=== PATIENT | female | born 1945 | race Caucasian/White ===

== ENCOUNTER 2018-05-14 06:03 | Day surgery (SDC) | payer MEDICARE, OTHER ==
[~2018-05-14 06:03] MED LIST: Lactated Ringers 1,000 ML IV SCH
--- NOTE | 2018-05-14 08:55 | OP ---
SURGERY DATE/TIME: 05/14/2018 0759 PREOPERATIVE DIAGNOSIS: Rectal bleeding. POSTOPERATIVE DIAGNOSES: 1) Hemorrhoids. 2) Small sigmoid colon polyp. PROCEDURE: Colonoscopy with polypectomy. SURGEON: Dr. Moura. ANESTHESIA: MAC. Medications given by anesthesia department. HISTORY: The patient is a 73 year-old white female presenting now for colonoscopic evaluation. She reports she had previous colonoscopy in 2003 which was normal. She has been having bleeding recently but no bleeding with the prep. She thought it was likely coming from hemorrhoids. She was felt the need to have endoscopic evaluation. The patient was appraised of the risks of the procedure including the risk of perforation, phlebitis, untoward reaction to medication, bleeding and missed lesions. The patient verbalized her understanding and desired to have the procedure performed. DESCRIPTION OF PROCEDURE: The patient was given the medications by the anesthesia department. She had continuous pulse oximetry, ECG monitoring, intermittent blood pressure monitoring and tidal CO2 monitoring during the examination. She was placed in the left lateral decubitus position. A digital rectal examination was performed and did reveal the external hemorrhoids with stigmata of recent bleeding. There was no masses and normal anal sphincter tone. The flexible Olympus pediatric colonoscope was used to intubate the rectum. A view of the colon was developed sequentially to the cecum. Upon insertion and withdrawal was noted a polyp approximately 1 cm in size in the sigmoid colon and this was removed using hot polypectomy snare for removal and the polyp was retrieved for pathologic evaluation. Upon insertion and withdrawal, including a retroflex view in the rectum, no other mucosal lesions being encountered. The scope was removed from the patient who tolerated the procedure well and was sent back to OP recovery in good condition. The prep was noted to be fair to good.
[2018-05-14 09:42] VITALS: O2SAT 100
[2018-05-14 09:43] VITALS: BP 127/71; PULSE 59
[2018-05-14] MEDS ORDERED: DIPRIVAN 200 MG/20 ML IV ONE (14:53)
== END 2018-05-14 09:45 | disposition home or self-care (01) ==
LOC: SDC 06:03
PROVIDERS: ATTEND Family Medicine
DX: K64.9 Unspecified hemorrhoids (principal); K63.5 Polyp of colon
CPT/HCPCS: 88305; 94250; 99100; J2704

== ENCOUNTER 2022-06-10 06:09 | Day surgery (SDC) | payer MEDICARE ==
[2022-06-10] MEDS ORDERED: Lactated Ringers 1,000 ML IV SCH (07:00)
[2022-06-10] MEDS ORDERED: DIPRIVAN 200 MG/20 ML IV ONE ×2 (07:03→07:18)
[2022-06-10] MEDS ORDERED: Xylocaine-Mpf 2% 5 Ml Vial ONE (07:03)
--- NOTE | 2022-06-10 07:51 | OP ---
SURGERY DATE/TIME: 06/10/2022 0700 PREOPERATIVE DIAGNOSIS: Screening exam, previous history of colon polyps. POSTOPERATIVE DIAGNOSIS: Normal colon. PROCEDURE: Colonoscopy. SURGEON: Dr. Burke Moura. ANESTHESIA: MAC. Medications given by anesthesia department. HISTORY: The patient is a 77-year-old white female presenting now for screening colonoscopy. The patient had reported previous polyps. The patient was felt the need to have endoscopic evaluation. She was appraised of the risks of the procedure including the risk of perforation, phlebitis, untoward reaction to medication, bleeding and missed lesions. The patient verbalized her understanding and desired to have the procedure performed. DESCRIPTION OF PROCEDURE: The patient was given the medications by the anesthesia department. She had continuous pulse oximetry, ECG monitoring, intermittent blood pressure monitoring during the examination. She was placed in the left lateral decubitus position. A digital rectal examination was performed and revealed normal anal sphincter tone and no masses. The flexible Olympus pediatric colonoscope was used to intubate the rectum. A view was developed to the cecum. Upon insertion and withdrawal, including a retroflex view in the rectum, no mucosal lesions were encountered. The scope was removed from the patient who tolerated the procedure well and was sent back to outpatient recovery in good condition. The prep was noted to be fair to poor at times with particulate matter including corn being throughout portions of the colon.
[2022-06-10 08:07] VITALS: BP 114/66; PULSE 56; O2SAT 100
== END 2022-06-10 08:26 | disposition home or self-care (01) ==
LOC: SDC 06:09
PROVIDERS: ATTEND Family Medicine
DX: Z09 Encounter for follow-up examination after completed treatment for conditions other than malignant neoplasm (principal); Z86.010 Personal history of colon polyps
CPT/HCPCS: 99100; J2704